=== PATIENT | female | born 1950 | race Caucasian/White ===

== ENCOUNTER 2021-11-04 06:51 | Observation (INO) ==
[2021-11-04] MEDS ORDERED: Heparin 1,000 UNITS/500 mL 500 ML ONE ×2 (07:16→08:14)
[2021-11-04] MEDS ORDERED: 0.9 % Sodium Chloride 500 ML ONE (07:16)
[2021-11-04] MEDS ORDERED: Lidocaine -MPF 2% 5 ML VIAL SQ ONE (07:39)
[2021-11-04] MEDS ORDERED: *HR* Phenylephrine 10 MG/ML VIAL IVC ONE (07:39)
[2021-11-04] MEDS ORDERED: *HR* Propofol 200 MG/20 ML VIAL IVP ONE (07:39)
[2021-11-04] MEDS ORDERED: *HR* Rocuronium Bromide 50 MG/5 ML VIAL IVP ONE (07:39)
[2021-11-04] MEDS ORDERED: Ondansetron 4 MG/2 ML VIAL IVP ONE (07:39)
[2021-11-04] MEDS ORDERED: *HR* Midazolam HCl 2 MG/2 ML VIAL ONE (07:48)
[2021-11-04] MEDS ORDERED: *HR* FentaNYL (PF) 100 MCG/2 ML VIAL ONE (07:48)
[2021-11-04] MEDS ORDERED: *HR* HYDROmorphone PF 0.5 MG/0.5 ML SYRINGE IVP PRN (08:04)
[2021-11-04] MEDS ORDERED: Ondansetron 4 MG/2 ML VIAL IVP PRN ×2 (08:04→15:15)
[2021-11-04] MEDS ORDERED: Iopamidol - 300 50 ML VIAL IVP ONE ×2 (09:43→09:44)
[2021-11-04] MEDS ORDERED: *HR* Promethazine 25 MG/ML VIAL IM ONE (10:39)
[2021-11-04] MEDS ORDERED: Promethazine 6.25 MG in Water for inj. (sterile) 20 ML IVPB PRN (10:47)
[2021-11-04] MEDS ORDERED: Water for inj. (sterile) 20 ML ONE (10:49)
[2021-11-04] MEDS: Promethazine 6.25 MG in Water for inj. (sterile) 20 ML IVPB PRN ×2 (10:58→13:49)
[2021-11-04] MEDS ORDERED: Pantoprazole 40 MG VIAL IVP ONE (14:05)
[2021-11-04] MEDS ORDERED: *HR* OxyCODONE Immed Rel 5 MG TABLET PO PRN (15:15)
[2021-11-04] MEDS ORDERED: Naloxone 0.4 MG/ML INJ IVP PRN (15:15)
[2021-11-04] MEDS ORDERED: D5% in Water 1,000 ML IVC PRN (15:27)
[2021-11-04] MEDS ORDERED: *HR* Dextrose 50 % in Water (Syg) 50 ML SYRINGE IVP PRN (15:27)
[2021-11-04] MEDS ORDERED: Dextrose Gel 15 GM/37.5 ML TUBE PO PRN ×2 (15:27)
[2021-11-04] MEDS: Insulin LISPRO 300 UNITS/3 ML VIAL SUBQ SCH ×2 (15:40→17:49)
[2021-11-04 17:09] LABS: Basophils % 0.4 %; Mean Corpuscular HGB Conc 34.3 g/dL (31.6-35.5); Mean Corpuscular Hemoglobin 31.4 pg (28.0-33.3); Red Cell Distribution Width 13.8 % (11.5-14.5)
[2021-11-04 17:10] LABS: Hematocrit 34.1 % (35.3-44.9); Hemoglobin 11.7 g/dL (11.5-15.4); Immature Granulocytes % 0.6 % (0-4); Immature Platelets 3.6 % (1.1-6.1); Lymphocytes # 0.5 K/mcL (0.6-4.6); Mean Corpuscular Volume 91.4 fL (83.0-100.0); Mean Platelet Volume 10.4 fL (9.4-12.4); Monocytes # 0.1 K/mcL (0.0-1.3); Monocytes % 2.7 %; Neutrophils # 4.1 K/mcL (1.6-8.9); Red Blood Count 3.73 M/mcL (3.82-4.97); Segmented Neutrophils % 85.3 %; White Blood Count 4.8 K/mcL (4.3-11.1)
[2021-11-04 17:16] LABS: Platelet Count 77 K/mcL (140-400)
[2021-11-04 17:20] LABS: Calcium 8.7 mg/dL (8.6-10.3); Magnesium 1.9 mg/dL (1.6-2.6); Potassium 5.1 mEq/L (3.5-5.1)
[2021-11-04] MEDS: Piperacillin/Tazobactam 3.375 GM in 0.9 % Sodium Chloride Mini Bag 100 ML IVPB SCH ×2 (17:35→23:29)
[2021-11-04] MEDS ORDERED: Insulin LISPRO 300 UNITS/3 ML VIAL SUBQ SCH (21:00)
[2021-11-05 04:17] LABS: Hemoglobin 10.6 g/dL (11.5-15.4)
[2021-11-05 04:19] LABS: Basophils % 0.2 %; Hematocrit 31.1 % (35.3-44.9); INR 1.5; Immature Granulocytes % 0.4 % (0-4); Immature Platelets 4.6 % (1.1-6.1); Lymphocytes # 0.9 K/mcL (0.6-4.6); Lymphocytes % 8.7 %; Mean Corpuscular HGB Conc 34.1 g/dL (31.6-35.5); Mean Corpuscular Hemoglobin 30.8 pg (28.0-33.3); Mean Corpuscular Volume 90.4 fL (83.0-100.0); Mean Platelet Volume 10.2 fL (9.4-12.4); Monocytes # 0.9 K/mcL (0.0-1.3); Monocytes % 8.8 %; Red Blood Count 3.44 M/mcL (3.82-4.97); Red Cell Distribution Width 13.9 % (11.5-14.5); Segmented Neutrophils % 81.9 %; White Blood Count 9.8 K/mcL (4.3-11.1)
[2021-11-05 04:20] LABS: Platelet Count 82 K/mcL (140-400)
[2021-11-05 04:40] LABS: BUN/Creatinine Ratio 24 (6-26); Blood Urea Nitrogen 33 mg/dL (8-23); Calcium 8.2 mg/dL (8.6-10.3); Carbon Dioxide 21 mEq/L (23-29); Chloride 103 mEq/L (98-107); Glucose 183 mg/dL (70-105); Magnesium 1.9 mg/dL (1.6-2.6); Osmolality,Calculated 286 (280-300); Potassium 4.8 mEq/L (3.5-5.1); Sodium 132 mEq/L (136-145); Troponin I < 0.03 ng/mL (< 0.04)
[2021-11-05] MEDS: Piperacillin/Tazobactam 3.375 GM in 0.9 % Sodium Chloride Mini Bag 100 ML IVPB SCH (08:19)
[2021-11-05] MEDS: Insulin LISPRO 300 UNITS/3 ML VIAL SUBQ SCH (08:20)
[2021-11-05 11:45] VITALS: BP 125/66; PULSE 60; TEMP 98.4; O2SAT 95
== END 2021-11-05 13:38 | disposition home or self-care (01) ==
LOC: 2ANU 06:51 → INTRAD 06:51 → 2ANU 14:41 → SUATTDRO 15:15
PROVIDERS: ADMIT Pharmacist; ATTEND Internal Medicine